=== PATIENT | male | born 1960 | race Caucasian/White ===

== ENCOUNTER → 2018-07-02 | Day surgery (SDC) | payer OTHER ==
[2018-06-28 09:52] LABS: BASOPHILS % 0.5 % (0.0-1.0); EOSINOPHILS # (AUTO) 0.1 (0.0-0.4); EOSINOPHILS % 1.6 % (0.0-6.0); HEMATOCRIT 40.8 % (38.2-49.6); LYMPHOCYTES # (AUTO) 2.5 (1.0-3.2); LYMPHOCYTES % 32.5 % (18.0-39.1); MEAN CORPUSCULAR HGB CONC 34.3 g/dL (31-35); MEAN CORPUSCULAR VOLUME 90.5 fL (81-99); MONOCYTES # (AUTO) 0.5 (0.2-0.8); MONOCYTES % 6.6 % (4.4-11.3); NEUTROPHILS # (AUTO) 4.4 (2.1-6.9); NEUTROPHILS % 58.7 % (38.7-80.0); PLATELET COUNT 234 x10e3/uL (140-360); RED BLOOD COUNT 4.51 x10e6/uL (4.3-5.7); RED CELL DISTRIBUTION WIDTH 12.8 % (11.7-14.4)
[2018-06-28 10:16] LABS: ANION GAP 9.7 mmol/L (8-16); BLOOD UREA NITROGEN 11 mg/dL (7-26); BUN/CREATININE RATIO 14 (6-25); CALCIUM 9.1 mg/dL (8.4-10.2); CARBON DIOXIDE 29 mmol/L (22-29); CHLORIDE 100 mmol/L (98-107); CREATININE, SERUM 0.79 mg/dL (0.72-1.25); EST GLOMERULAR FILTRATION RATE > 60 ML/MIN (60-); GLUCOSE 99 mg/dL (74-118); POTASSIUM 3.7 mmol/L (3.5-5.1); SODIUM 135 mmol/L (136-145)
[~2018-07-02] MED LIST: ACETAMINOPHEN 1000 MG/100 ML IV ONE; BUPIVACAINE 0.5%/EPI 30 ML SDV INJ ONE; CENTRUM COMPLE1 EACH PO; DESFLURANE 240 ML BTL INH ONE; DEXAMETHASONE SOD PHOS INJ 4 MG/ML VIAL ONE; FENTANYL CITRATE/PF 100MCG/2 ML INJ ONE; LIDOCAINE HCL 1% 30ML-PF VIAL ONE; LIDOCAINE HCL 2% LOCAL INJ 5 ML SDV VIAL INJ ONE; MIDAZOLAM HCL 2 MG/2 ML VIAL ONE; ONDANSETRON HCL INJ 2 MG/ML VIAL ONE; PROPOFOL IV EMULSION 10 MG/ML 20 ML VIAL ONE; ROCURONIUM BROMIDE 10 MG/ML 5ML VIAL ONE
--- OUTSIDE RECORDS SUMMARY | 2018-07-02 06:16 | XMS REPORT | Continuity of Care Document ---
Author Author [facility] Interface Address Unknown Phone Unavailable Problems Problem Status Onset Date Classification Date Reported Comments Source Influenza due to Influenza virus, type B 07/04/2017 Diagnosis 07/04/2017 [facility] Influenza vaccine needed 04/11/2016 Diagnosis 04/11/2016 [facility] Immunization 04/11/2016 Diagnosis 04/11/2016 [facility] Counseling 04/11/2016 Diagnosis 04/11/2016 [facility] Acute Upper Respiratory Infection Problem 07/04/2017 [facility] Bronchitis Problem 07/04/2017 [facility] Gastroesophageal Reflux Disease Problem 07/04/2017 [facility] Medications Medication Details Route Status Patient Instructions Ordering Provider Order Date Source Azithromycin 250 MG Oral Tablet azithromycin 250 mg tablet Active [facility] benzonatate 200 MG Oral Capsule benzonatate 200 mg capsule Active [facility] 1 ML methylprednisolone acetate 80 MG/ML Injection [Depo-Medrol] Depo-Medrol 80 mg/mL suspension for injection Take 1 mL by injection route. Active [facility] 200 ACTUAT Albuterol 0.09 MG/ACTUAT Metered Dose Inhaler [Ventolin] Ventolin HFA 90 mcg/actuation aerosol inhaler Active [facility] Brompheniramine Maleate 0.4 MG/ML / Dextromethorphan Hydrobromide 2 MG/ML / Pseudoephedrine Hydrochloride 6 MG/ML Oral Solution [Bromfed DM] Bromfed DM 2 mg-30 mg-10 mg/5 mL syrup Take 10 mL every 4-6 hours by oral route as needed for 6 days. Active [facility] Oseltamivir 75 MG Oral Capsule [Tamiflu] Tamiflu 75 mg capsule Take 1 capsule twice a day by oral route as directed for 5 days. Active [facility] Allergies, Adverse Reactions, Alerts Substance Category Reaction Severity Reaction type Status Date Reported Comments Source Immunizations Immunization Date Given Site Status Last Updated Comments Source influenza, unspecified formulation 03/26/2017 completed [facility] pneumococcal conjugate PCV 13 04/11/2016 completed [facility] influenza, injectable, quadrivalent 04/11/2016 completed [facility] influenza, seasonal, injectable 04/08/2013 completed [facility] Td (adult) 06/26/2009 completed [facility] Results Order Name Results Value Reference Range Date Interpretation Comments Source Influenza A negative 07/04/2017 [facility] Influenza B positive 07/04/2017 [facility] Vital Signs Vital Sign Value Date Comments Source Diastolic (mm Hg) 80 07/04/2017 [facility] Height 66 07/04/2017 [facility] Systolic (mm Hg) 126 07/04/2017 [facility] Weight 182 07/04/2017 [facility] Height 66 04/11/2016 [facility] Weight 180 04/11/2016 [facility] Encounters Location Location Details Encounter Type Encounter Number Reason For Visit Attending Provider ADM Date DC Date Status Source [place] - [facility] - [id number] LamC: [address] [place] [address], Ph. [id number] Luz Marina Davidson 04/11/2016 [facility] [place] [facility] - [id number] Herrera-C: [address] [place] [address], Ph. [id number] Bree Lima 07/04/2017 [facility] Procedures Procedure Code Date Perfomer Comments Source
--- OUTSIDE RECORDS SUMMARY | 2018-07-02 06:16 | XMS REPORT | Encounter Summary ---
Author Organization Unknown Address [address] [place] [address] Phone [phone] Reason for Visit Flu Immunization; Immunization; flu shot, pneumovax Instructions 1. Influenza vaccine needed Fluzone Quad [id number] 60 mcg (15 mcg x 4)/0.5 mL IM suspension 2. Immunization Prevnar 13 (PF) 0.5 mL intramuscular syringe 3. Counseling Discussion Note: None recorded. Patient educational handouts: No information available. Plan of Care Reminders Provider Appointments None recorded. Lab None recorded. Referral None recorded. Procedures None recorded. Surgeries None recorded. Imaging None recorded. Medications Name Start Date azithromycin 250 mg tablet benzonatate 200 mg capsule Depo-Medrol 80 mg/mL suspension for injection Take 1 mL by injection route. Ventolin HFA 90 mcg/actuation aerosol inhaler Medications Administered None recorded. Vitals Height Weight BMI 5 ft 6 in 180 lbs 29.1 Lab Results None recorded. Allergies Name Reaction Severity Onset NKDA Problems Name Status Onset Date Source Acute Upper Respiratory Infection Active Encounter Bronchitis Active Encounter Gastroesophageal Reflux Disease Active Encounter Procedures None recorded. Vaccine List Vaccine Type influenza, injectable, quadrivalent 04/11/2016 influenza, seasonal, injectable 04/08/2013 pneumococcal conjugate PCV 13 04/11/20160.5 mL Social History Smoking Status Never Smoker Past Encounters 04/11/2016 Influenza Vaccine Needed; Immunization; Counseling Luz Marina Davidson PA-C: [address] [place] [address], Ph. History of Present Illness Immunization Reported By: Patient Review of Systems None recorded. Physical Exam Immunization General Appearance: General: well-developed, well-nourished, no acute distress
--- OUTSIDE RECORDS SUMMARY | 2018-07-02 06:16 | XMS REPORT | Encounter Summary ---
Author Organization Unknown Address [address] [place] [address] Phone [phone] Care Team Providers Care Senior Svp Name Role Phone Christine Guillaume 3 [phone] Reason for Visit Medical Complaint Instructions 1. Influenza due to Influenza virus, type B rapid flu (A+B) Tamiflu 75 mg capsule Bromfed DM 2 mg-30 mg-10 mg/5 mL syrup Discussion Note Pt is in NAD; Verbalizes understanding of all instructions with no questions at this time. Patient educational handouts: No information available. Plan of Care Patient Instructions Take fluticasone as needed for congestion. Tennille one spray in each nostril twice a day. Take a warm, steamy shower, blow your nose thereafter, and spray in each nostril. Tilt your head up for about 10 seconds and breath through your mouth. Do not sniff or snort the medication in or else the medication will go to your throat and not be absorbed appropriately. Take Bromfed DM for cough as directed. Take Tamiflu (oseltamivir) as directed for the flu. Alternate with Ibuprofen and acetaminophen every 4hrs as needed for pain/fever/headache. Proper hydration and rest. Return to work/school if free of fever for 24-hrs. Do not share any utensils/cups, no kissing, recommend hand washing after coughing/sneezing/blowing nose and cover face when you do so. Take medications as prescribed. Return to clinic or follow up with your PCP within 2-3 days if symptoms worsen as discussed. Reminders Provider Appointments None recorded. Lab Rapid Flu (A+B) 07/04/2017 [facility] Referral None recorded. Procedures None recorded. Surgeries None recorded. Imaging None recorded. Medications Name Start Date Bromfed DM 2 mg-30 mg-10 mg/5 mL syrup Take 10 mL every 4-6 hours by oral route as needed for 6 days. Tamiflu 75 mg capsule Take 1 capsule twice a day by oral route as directed for 5 days. Medications Administered None recorded. Vitals Height Weight BMI Blood Pressure 5 ft 6 in 182 lbs 29.4 kg/m2 126/80 mm[Hg] Lab Results Date Name Specimen Result Interpretation Description Value Range Status Address 07/04/2017 Rapid Flu (A+B) Influenza a negative [facility]: [facility] Influenza B positive [facility]: [facility] Allergies Code Code System Name Reaction Severity Status Onset NKDA Problems Name Status Onset Date Source Acute Upper Respiratory Infection Active Encounter Bronchitis Active Encounter Gastroesophageal Reflux Disease Active Encounter Procedures None recorded. Vaccine List Vaccine Type influenza, injectable, quadrivalent 04/11/2016 influenza, seasonal, injectable 04/08/2013 influenza, unspecified formulation 03/26/2017 pneumococcal conjugate PCV 13 04/11/20160.5 mL Td (adult) 06/26/2009 Social History Smoking Status Never Smoker Past Encounters 07/04/2017 Influenza Due to Influenza Virus, Type B HERNANDEZ Ma-C: [address] [place] [address], Ph. History of Present Illness [id number] Reported By: Patient HPI: Quality: symptoms worse during the day. Duration: 2 days. Severity: subjective temperature. Context: no ill contacts, no tick/insect bites, no recent travel, no new medications. Associated Symptoms: no headache, no muscle aches, no rash, no lethargy, fever/chills, cough, nasal discharge; chest congestion. Modifying Factors nothing gives relief Review of Systems:ROS as noted in the HPI Review of Systems Basic Reported By: Patient Physical Exam Adult Basic, Adult Female Complete, Adult Male Complete Reported By: Patient Constitutional: General Appearance: healthy-appearing, well-nourished, well-developed. Level of Distress: NAD. Ambulation: ambulating normally Psychiatric: Mental Status: active and alert. Orientation: to time, to place, to person [id number]-[id number]-Bpiko-Throat: Ears: no lesions on external ear, no outer ear tenderness, EACs clear, TMs clear. Hearing: no hearing loss. Nose: no lesions on external nose, nares patent, no septal deviation, nasal passages clear, no sinus tenderness, nasal discharge--rhinorrhea, post nasal drip. Lips, Teeth, and Gums: no mouth or lip ulcers, no bleeding gums, normal dentition. Oropharynx: moist mucous membranes, no erythema, no exudates, tonsils not enlarged Neck: Lymph Nodes: no cervical LAD Lungs: Respiratory effort: no dyspnea, no tachypnea, no use of accessory muscles, no intercostal retractions. Auscultation: breath sounds normal Cardiovascular: Heart Auscultation: RRR, no murmurs Neurologic: Gait and Station: normal gait, normal station
--- NOTE | 2018-07-02 07:10 | NUR ---
SPIRITUAL CARE - Pre-Surgery Assessment: Pt in bed. Pt reported supportive attention from family and friends. Intervention: I provided pastoral presence, hospitality, and sympathetic listening. I acquainted pt with availability of construction mgr while hospitalized. Outcome: Pt expressed appreciation for visit. No need for follow up indicated at this time. IRWIN [facility]lain Spiritual Care Department O: [phone] Pager: [phone] ([phone] number calling from)
[2018-07-02 11:35] VITALS: BP 150/84
--- NOTE | 2018-07-02 13:58 | Operative Report ---
DATE OF PROCEDURE: July 02, 2018 PREOPERATIVE DIAGNOSES: 1. Left inguinal hernia. 2. Umbilical hernia. POSTOPERATIVE DIAGNOSES: 1. Left inguinal hernia. 2. Umbilical hernia. OPERATIONS PERFORMED: 1. Repair of left inguinal hernia with extended Prolene hernia system. 2. Repair of umbilical hernia. ANESTHESIA: General. COMPLICATIONS: None. ESTIMATED BLOOD LOSS: Minimal. DESCRIPTION OF PROCEDURE: With the patient lying in bed in the supine position under good general anesthesia, the abdomen was prepped with Betadine solution and draped in the usual manner. A left inguinal incision was made. It was carried down through the subcutaneous tissue down to the external oblique aponeurosis. The external oblique was opened along the length of its fibers, and the external inguinal ring was opened. The cord was then mobilized and retracted. Exploration of the cord did not reveal the presence of any indirect hernia sac. There was, however, a large protruding direct hernia that contained the bladder. The direct hernia was then reduced back to the intraabdominal cavity. After this was done, the preperitoneal space was then entered through the internal ring, and a pocket was created without any difficulty. An extended Prolene hernia system was placed in the preperitoneal space, and the underlay patch was deployed without any problems. The overlay patch was then placed over the floor and split inferolaterally to allow for passage of the cord. The mesh was then sutured to the conjoined tendon and the inguinal ligament using interrupted sutures of 2-0 Vicryl. All layers were infiltrated on the way out with solution of 1/4 percent Marcaine and 1% lidocaine mixed in equal parts. The external oblique aponeurosis was closed with a running suture of 2-0 Vicryl. The subcutaneous tissue was approximated with 3-0 plain, and the skin was closed with clips. A semilunar subumbilical incision was then made and carried down through the subcutaneous tissue down to the fascia. The hernia sac was then encircled with normal fascia all the way around. The umbilicus was then detached from the umbilical hernia, and the defect was then inspected. The defect was small, and there was no need to use any mesh and the defect was then closed transversely using interrupted sutures of 0 Ethibond. This gave us a satisfactory closure without any tension. All the layers were infiltrated on the way out with solution of 1/4 percent Marcaine. The umbilicus was then tacked back down to the midline fascia with 3-0 Vicryl. The subcutaneous tissue was approximated with 3-0 Vicryl, and the skin was closed with interrupted vertical mattress sutures of 3-0 silk. A dressing was applied. The sponge, lap and needle count was correct. The patient tolerated the procedure well and returned to the recovery room in stable condition. Job#: [id number]
== END | disposition home or self-care (01) ==
LOC: OR 06:13
PROVIDERS: ATTEND Surgery
DX: K40.90 Unilateral inguinal hernia, without obstruction or gangrene, not specified as recurrent (principal); K42.9 Umbilical hernia without obstruction or gangrene; Z01.810 Encounter for preprocedural cardiovascular examination; Z01.812 Encounter for preprocedural laboratory examination
CPT/HCPCS: 36415; 49505; 49585; 80048; 85025; 93005; C1781; J0131; J1100; J2001 ×2; J2250; J2405; J2704